=== PATIENT | male | born 1930 | race Hispanic/Latino ===

== ENCOUNTER 2016-10-07 13:00 | Inpatient (IN) | payer MEDICARE, BC ==
[2016-10-07] MEDS ORDERED: Albuterol-Ipratrop 3 mg / 0.5 (3 ml) UD IH STA (13:19)
--- NOTE | 2016-10-07 13:32 | ED PDOC ---
Arrival/HPI - General Chief Complaint: Shortness Of Breath Time Seen by Provider: 10/07/16 13:06 Historian: Patient, Family - History of Present Illness Narrative History of Present Illness (Text): 10/07/16 13:07 A 86 year old male, whose past medical history includes COPD, GERD, hypertension , Parkinson's disease, and atherectomy AAA, who presents to the emergency department complaining of shortness of breath. Patient notes for the past 2 weeks he has had a cough with URI like symptoms. Patient was seen by his PMD and was prescribed a Z-ezequiel and cough medication. Patient reports he has been using his home nebulizer more frequently. Patient daughter and patient states today when the patient was walking down the stair to go to his PMD's office for a check up he became more short of breath and was coughing a lot more. Patient' s PMD sent to the patient to the emergency department for further evaluation. Patient denies any chest pain, abdominal pain, nausea, vomiting, fever, headache or any other complaints at this time. PMD: Dr. Aguayo Time/Duration: > week (2 weeks) Symptom Onset: Gradual Symptom Course: Worsening Quality: Other Activities at Onset: Rest Modifying Factors (Text): no relief with z-ezequiel and cough medication Context: Home Associated Symptoms (Text): cough and URI like symptoms Past Medical History - Provider Review Nursing Documentation Reviewed: Yes - Past History Past History: No Previous - Infectious Disease Hx of Infectious Diseases: None - Tetanus Immunization Tetanus Immunization: Unknown - Past Medical History Past Medical History: No Previous - Cardiac Hx Cardiac Disorders: Yes Hx Hypertension: Yes Hx Pacemaker: No - Pulmonary Hx Respiratory Disorders: Yes Hx Bronchitis: Yes Hx Chronic Obstructive Pulmonary Disease (COPD): Yes Hx Emphysema: Yes - Neurological Hx Neurological Disorder: No Hx Paralysis: No - HEENT Hx HEENT Disorder: No - Renal Hx Renal Disorder: Yes Other/Comment: RENAL INSUFFICIENCY - Endocrine/Metabolic Hx Endocrine Disorders: No - Hematological/Oncological Hx Blood Transfusions: No Hx Blood Transfusion Reaction: No - Integumentary Hx Dermatological Disorder: No - Musculoskeletal/Rheumatological Hx Musculoskeletal Disorders: Yes - Gastrointestinal Hx Gastrointestinal Disorders: No - Genitourinary/Gynecological Hx Genitourinary Disorders: Yes Hx Prostate Problems: Yes - Psychiatric Hx Psychophysiologic Disorder: No Hx Depression: No Hx Emotional Abuse: No Hx Physical Abuse: No Hx Substance Use: No - Past Surgical History Past Surgical History: No Previous - Surgical History Hx Cardiac Catheterization: Yes Hx Coronary Stent: Yes Hx Orthopedic Surgery: Yes - Anesthesia Hx Anesthesia Reactions: No Hx Malignant Hyperthermia: No - Suicidal Assessment Feels Threatened In Home Enviroment: No Family/Social History - Physician Review Nursing Documentation Reviewed: Yes Family/Social History: No Known Family HX Smoking Status: Former Smoker Hx Alcohol Use: No Hx Substance Use: No Hx Substance Use Treatment: No Allergies/Home Meds Allergies/Adverse Reactions: Allergies No Known Allergies Allergy (Verified 10/07/16 13:17) Home Medications: Home Meds Medication Instructions Recorded Confirmed Albuterol 0.083% [Albuterol 0.083% 1 inh NEB Q6 12/05/15 10/07/16 Inhal Josie (2.5 mg/3 ml) UD] Celecoxib [Celecoxib] 200 mg PO DAILY 12/05/15 10/07/16 Ipratropium 0.02% [Atrovent] 1 inh INH Q6 12/05/15 10/07/16 Vit A/Vit C/Vit E/Zinc/Copper 2 tab PO DAILY 12/05/15 10/07/16 [Preservision Areds Tablet] Mirabegron [Myrbetriq] 50 mg PO DAILY 07/30/16 10/07/16 Montelukast [Singulair] 50 mg PO DAILY 07/30/16 10/07/16 Pramipexole Di-HCl [Pramipexole 0.125 mg PO HS 07/30/16 10/07/16 Dihydrochloride] Rivastigmine 9.5 mg/24 hr [Exelon 1 patch TD DAILY 07/30/16 10/07/16 9.5 mg Patch] Albuterol Sulfate [Proventil Hfa] 1 inh INH Q6 PRN 10/07/16 10/07/16 Fluticasone/Vilanterol [Breo 1 inh INH DAILY 10/07/16 10/07/16 Ellipta 200-25 Mcg INH] Review of Systems - Physician Review All systems were reviewed & negative as marked: Yes - Review of Systems Constitutional: absent: Fevers Respiratory: SOB, Cough Cardiovascular: absent: Chest Pain Gastrointestinal: absent: Abdominal Pain, Nausea, Vomiting Neurological: absent: Headache, Dizziness Physical Exam Vital Signs Reviewed: Yes Vital Signs Temp Pulse Resp BP Pulse Ox 10/07/16 15:32 96 H 16 132/82 96 10/07/16 13:28 98.4 F 87 18 149/79 96 10/07/16 13:20 17 100 Temperature: Afebrile Blood Pressure: Normal Pulse: Regular Respiratory Rate: Tachypneic Appearance: Positive for: Well-Appearing, Non-Toxic, Comfortable Pain Distress: None Mental Status: Positive for: Alert and Oriented X 3 - Systems Exam Head: Present: Atraumatic, Normocephalic Pupils: Present: PERRL Extroacular Muscles: Present: EOMI Conjunctiva: Present: Normal Mouth: Present: Moist Mucous Membranes Neck: Present: Normal Range of Motion Respiratory/Chest: Present: Good Air Exchange, Wheezes (bilaterally), Tachypneic. No: Respiratory Distress, Accessory Muscle Use, Rales, Retracting, Rhonchi Cardiovascular: Present: Regular Rate and Rhythm, Normal S1, S2. No: Murmurs Abdomen: Present: Normal Bowel Sounds. No: Tenderness, Distention, Peritoneal Signs Back: Present: Normal Inspection Upper Extremity: Present: Normal Inspection. No: Cyanosis, Edema Lower Extremity: Present: Normal Inspection. No: Edema, CALF TENDERNESS Neurological: Present: GCS=15, CN II-XII Intact, Speech Normal Skin: Present: Warm, Dry, Normal Color. No: Rashes Psychiatric: Present: Alert, Oriented x 3, Normal Insight, Normal Concentration Medical Decision Making ED Course and Treatment: 10/07/16 13:07 Impression: A 86 year old male with shortness of breath and cough. Differential Diagnosis included but are not limited to: URI vs. Pneumonia vs. ACS vs. COPD exacerbation vs. bronchitis Plan: -- EKG -- Chest X-ray -- Labs -- Duoneb -- Reassess and disposition Prior Visits: Notes and results from previous visits were reviewed. The patient last presented to the emergency department on 05/18/16 for evaluation after a mechanical fall. Progress Notes: EKG: Ordered, reviewed, and independently interpreted the EKG. Rate : 95 BPM Rhythm : NSR Interpretation : Incomplete right bundle branch block Comparison : No change from previous EKG on 07/20/14 for comparison. Chest X-ray: As ready by me no acute findings. Due to persistent shortness of breath, history of COPD and failed outpatient treatment, patient will need to be observed 10/07/16 15:[address] Eugenio Aguayo, who is aware and agrees with the plan to admit the patient for COPD exacerbation and bronchitis. He states to to start patient on ceftriaxone and azithromycin. I have discussed the results and plan with the patient, who expresses understanding. Patient given the opportunity to ask question, all questions were answered and there is agreement with the plan to be admitted to the hospital. 10/07/16 16:27 Chest X-ray: Creator : Darius Willard MD COMPARISON: 07/23/2014 FINDINGS: LUNGS: No active pulmonary disease. PLEURA: No significant pleural effusion identified. No pneumothorax apparent. CARDIOVASCULAR: There is a small hiatal hernia seen. OSSEOUS STRUCTURES: Left glenohumeral osteoarthritis with left rotator cuff insufficiency and mild superior subluxation of the humeral head. VISUALIZED UPPER ABDOMEN: Normal. OTHER FINDINGS: None. IMPRESSION: Small hiatal hernia. No infiltrate. - Lab Interpretations Lab Results: 10/07/16 13:56 10/07/16 13:56 Lab Results 10/07/16 13:56: WBC 6.7, RBC 4.05, Hgb 12.4 L, Hct 37.7 L, MCV 93.1, MCH 30.6, MCHC 32.9, RDW 13.7, Plt Count 176, MPV 9.0, Gran % 60.1, Lymph % (Auto) 20.4 L , [place] % (Auto) 9.6 H, Eos % (Auto) 9.3 H, Baso % (Auto) 0.6, Gran # 4.03, Lymph # 1.4, [place] # 0.6, Eos # 0.6, Baso # 0.04, Sodium 139, Potassium 4.9, Chloride 104, Carbon Dioxide 24, Anion Gap 16, BUN 27 H, Creatinine 1.3, Est GFR ( Amer) > 60, Est GFR (Non-Af Amer) 52, Random Glucose 97, Calcium 8.8, Total Creatine Kinase 138, Troponin I < 0.01 D, NT-Pro-B Natriuret Pep 484 H I have reviewed the lab results: Yes - RAD Interpretation Radiology Orders: 10/07/16 13:19 CHEST TWO VIEWS (PA/LAT) [RAD] Stat - Medication Orders Current Medication Orders: Azithromycin (Zithromax 500mg In Ns) 250 mls @ 167 mls/hr IVPB STAT STA PRN Reason: Protocol Stop: 10/07/16 17:13 Discontinued Medications Albuterol/Ipratropium (Duoneb 3 Mg/0.5 Mg (3 Ml) Ud) 3 ml IH STAT STA Stop: 10/07/16 13:20 Last Admin: 10/07/16 13:38 Dose: 3 ML Ceftriaxone Sodium (Rocephin 1 Gram Ivpb) 100 mls @ 200 mls/hr IVPB STAT STA PRN Reason: Protocol Stop: 10/07/16 16:11 Last Admin: 10/07/16 16:27 Dose: 200 MLS/HR eMAR Start Stop Document 10/07/16 16:27 SF (Rec: 10/07/16 16:27 SF [id number] Intravenous Solution Start Date 10/07/16 Start Time 16:27 End Date 10/07/16 End time 16:57 Total Infusion Time 30 - Scribe Statement The provider has reviewed the documentation as recorded by the Scribe Man Levi Provider Scribe Attestation: All medical record entries made by the Scribe were at my direction and personally dictated by me. I have reviewed the chart and agree that the record accurately reflects my personal performance of the history, physical exam, medical decision making, and the department course for this patient. I have also personally directed, reviewed, and agree with the discharge instructions and disposition. Disposition/Present on Arrival - Present on Arrival Any Indicators Present on Arrival: No History of DVT/PE: No History of Uncontrolled Diabetes: No Urinary Catheter: No History of Decub. Ulcer: No History Surgical Site Infection Following: None - Disposition Have Diagnosis and Disposition been Completed?: Yes Diagnosis: COPD exacerbation, Bronchitis Disposition: HOSPITALIZED Disposition Time: 15:41 Patient Plan: Observation Patient Problems: Current Active Problems Problem Status Diagnosed Bronchitis Acute COPD exacerbation Acute Renal insufficiency Acute Condition: FAIR
[2016-10-07 13:57] LABS: ADD MANUAL DIFF? NO
[2016-10-07 13:59] LABS: BASO # 0.04 K/mm3 (0.0-2.0); BASO % 0.6 % (0.0-3.0); EOS # 0.6 (0.0-0.7); EOS % 9.3 % (1.5-5.0); GRAN # 4.03 (1.4-6.5); GRAN % 60.1 % (50.0-68.0); HEMATOCRIT 37.7 % (42.0-52.0); LYMPH # 1.4 (1.2-3.4); LYMPH % 20.4 % (22.0-35.0); MEAN CELL VOLUME 93.1 fL (80.0-105.0); MEAN CORPUSCULAR HEMOGLOBIN 30.6 pg (25.0-35.0); MEAN CORPUSCULAR HGB CONC 32.9 g/dl (31.0-37.0); MONO # 0.6 (0.1-0.6); MONO % 9.6 % (1.0-6.0); PLATELET COUNT 176 10^3/uL (120.0-450.0); RED CELL DISTRIBUTION WIDTH 13.7 % (11.5-14.5); WHITE BLOOD COUNT 6.7 10^3/ul (4.5-11.0)
[2016-10-07 14:09] LABS: BLOOD UREA NITROGEN 27 mg/dL (7-21); CALCIUM 8.8 mg/dL (8.4-10.5); CARBON DIOXIDE 24 mmol/L (21-33); CHLORIDE 104 mmol/L (98-107); GFR AFRICAN-AMERICAN > 60; GLUCOSE,RANDOM 97 mg/dL (70-110); POTASSIUM 4.9 mmol/L (3.6-5.0); SODIUM 139 mmol/L (132-148)
[2016-10-07 14:21] LABS: TROPONIN I < 0.01 ng/mL
[2016-10-07] MEDS ORDERED: cefTRIAXone 1 gm 100 ML IVPB STA (15:42)
[2016-10-07] MEDS ORDERED: Azithromycin 500MG/NS 250ml 250 ML IVPB STA (15:44)
--- NOTE | 2016-10-07 16:28 | RAD ---
HISTORY: shortness of breath COMPARISON: 07/23/2014 TECHNIQUE: Chest PA and lateral FINDINGS: LUNGS: No active pulmonary disease. PLEURA: No significant pleural effusion identified. No pneumothorax apparent. CARDIOVASCULAR: There is a small hiatal hernia seen. OSSEOUS STRUCTURES: Left glenohumeral osteoarthritis with left rotator cuff insufficiency and mild superior subluxation of the humeral head. VISUALIZED UPPER ABDOMEN: Normal. OTHER FINDINGS: None. IMPRESSION: Small hiatal hernia. No infiltrate.
[2016-10-07] MEDS ORDERED: Albuterol-Ipratrop 3 mg / 0.5 (3 ml) UD IH PRN (17:47)
--- NOTE | 2016-10-07 18:23 | CARD ---
APPROVED REPORT EKG Measurement Heart [id number] TN 124P26 [id number] <Conclusion> Normal sinus rhythm Incomplete right bundle branch block Borderline ECG
[2016-10-07] MEDS: Albuterol-Ipratrop 3 mg / 0.5 (3 ml) UD IH SCH ×2 (21:20→23:50)
[2016-10-07] MEDS ORDERED: Pneumococcal 23-Valent Vaccine IM ONE (23:12)
[2016-10-07] MEDS ORDERED: Influenza Vaccine 45 MCG/0.5 ml IM ONE (23:12)
--- NOTE | 2016-10-07 23:57 | CP.PCM.PN ---
Subjective - Date & Time of Evaluation Date of Evaluation: 10/07/16 Time of Evaluation: 21:00 - Subjective Subjective: Patient evaluated earlier after code star called. Patient got up from the bed and as per him to empty his urinal, felt unsteady, held on to the door and slid down, this was confirmed from the patient and his roomate. He was brought back to the bed, patient was able to walk while going back to bed, denied any pain. Upon clinical exam no swelling or bruise noticed to head, neck, chest, hips, legs. Chest exam revealed b/l scattered wheezes. Patient also clinically seemed bit anxious with passage of time during exam started to calm down. BP was elevated a the time with improved spontaneously. PMD was notified about the events. Patient was informed about fall risk/prevention, given call escamilla, and is in front of the nursing station. Objective - Vital Signs/Intake and Output Vital Signs (last 24 hours): Temp Pulse Resp BP Pulse Ox 98.4 F 94 H 16 143/68 94 L 10/07/16 23:02 10/07/16 23:02 10/07/16 23:02 10/07/16 23:02 10/07/16 18:29 Intake and Output: 10/07/16 10/08/16 18:59 06:59 Intake Total 360 Balance 360 - Medications Medications: Current Medications Albuterol/Ipratropium (Duoneb 3 Mg/0.5 Mg (3 Ml) Ud) 3 ml IH [id number] Last Admin: 10/07/16 23:50 Dose: 3 ml
[2016-10-08] MEDS: Albuterol-Ipratrop 3 mg / 0.5 (3 ml) UD IH SCH ×6 (03:30→23:45)
[2016-10-08] MEDS: Mirabegron [Myrbetriq] 50 MG (HOME MED) PO SCH (10:27)
--- NOTE | 2016-10-08 14:43 | HP ---
HISTORY OF PRESENT ILLNESS: The patient is an 86-year-old male with a history of COPD secondary to t obacco use, who presents to the Emergency Department with increasing shortness of breath and producti ve cough over the past week. The patient was treated as an outpatient with a Z-Clayton without relief of symptoms. He has had increasing wheezing. No hemoptysis, no nausea, no vomiting, no diarrhea, no c hest pain. 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 PAST SURGICAL HISTORY: Includes status post abdominal aortic stent placement for abdominal aortic an eurysm. CURRENT MEDICATIONS: Include Exelon patch 9.5 mg for 24 hours daily, Singulair 10 mg daily, Myrbetri q 50 mg daily, Atrovent inhaler as well as albuterol inhalers, Celebrex 200 mg daily and Breo Ellipta 200/25 mcg inhalation daily. ALLERGIES: The patient has no known drug allergies. SOCIAL HISTORY: The patient smokes approximately 1/2 pack per day and has a greater than 50-pack-yea r history of tobacco use. No history of alcohol use. He lives with his daughter. He needs assistan ce with IADLs and is independent with ADLs. PHYSICAL EXAMINATION: GENERAL: The patient is a slightly cachectic, elderly male, in no acute distress. VITAL SIGNS: Blood pressure 161/99, temperature 98.6, respiratory rate 22, pulse 89. HEENT: Head is normocephalic, atraumatic. Pupils equal, round and reactive to light. Extraocular m ovements intact. NECK: Supple with no thyromegaly, no carotid bruit, no adenopathy. LUNGS: Show scattered crepitations bilaterally and expiratory wheezes. HEART: Regular rate and rhythm. ABDOMEN: Soft, nontender, bowel sounds are normoactive. EXTREMITIES: Without cyanosis, clubbing, or edema. NEUROLOGIC: The patient is awake, slightly confused without focal, sensory or motor deficits. SKIN: Warm and dry. LABORATORY DATA: WBCs 6.7, hemoglobin 12.4, hematocrit 37.7. Sodium 139, potassium 4.9, chloride 10 4, CO2 24, BUN 27, creatinine 1.3. BNP is slightly elevated at 484. Troponin is less than 0.01. CP K is 138. Chest x-ray shows no active disease. IMPRESSION: 1. Exacerbation of chronic obstructive pulmonary disease with bronchitis. 2. Hypertension, hypertensive cardiovascular disease, possible early congestive heart failure. 3. Degenerative joint disease. 4. Mild to moderate Alzheimer disease. 5. Status post stent graft placement, abdominal aortic aneurysm. PLAN: The patient is admitted to medical surgical floor. We will start empiric IV antibiotics with Rocephin 1 gram q. 24 hours as well as Zithromax 500 mg IV q. 24 hours. We will give DuoNeb q. 4 foster rs while awake. Monitor renal function. Physical therapy evaluation and treatment. Social work for discharge planning. Eugenio Aguayo JD, MD cc: [phone] TT: 10/08/2016 14:43:06 en
[2016-10-08] MEDS: cefTRIAXone 1 gm 100 ML IVPB SCH (17:45)
[2016-10-08] MEDS: Azithromycin 500MG/NS 250ml 250 ML IVPB SCH (17:50)
[2016-10-08] MEDS: Arformoterol 15 mcg/2 ml Inh Sol IH SCH (20:10)
[2016-10-08] MEDS: Budesonide 0.5 mg/2 ml Inhal Susp UD IH SCH (20:10)
[2016-10-09] MEDS: Albuterol-Ipratrop 3 mg / 0.5 (3 ml) UD IH SCH ×4 (04:33→21:36)
[2016-10-09] MEDS: cefTRIAXone 1 gm 100 ML IVPB SCH (09:16)
[2016-10-09] MEDS: Azithromycin 500MG/NS 250ml 250 ML IVPB SCH (09:16)
[2016-10-09] MEDS: Pantoprazole 20 mg EC Tab PO SCH (09:18)
[2016-10-09] MEDS: Mirabegron [Myrbetriq] 50 MG (HOME MED) PO SCH (09:18)
[2016-10-09] MEDS: Budesonide 0.5 mg/2 ml Inhal Susp UD IH SCH ×2 (09:23→21:36)
[2016-10-09] MEDS: Arformoterol 15 mcg/2 ml Inh Sol IH SCH ×2 (09:23→21:36)
--- NOTE | 2016-10-09 12:40 | PN ---
DATE: 10/09/2016 SUBJECTIVE: The patient is lying in bed in no acute distress. There is no chest pain, no shortness of breath. There is an occasional cough. OBJECTIVE: VITAL SIGNS: Blood pressure 166/94, temperature 98.9, pulse 92, respiratory rate 20. LUNGS: Show an occasional expiratory wheeze and a few scattered crepitations. HEART: Regular rate and rhythm. ABDOMEN: Soft, nontender. Bowel sounds are normoactive. EXTREMITIES: Without cyanosis, clubbing, or edema. NEUROLOGIC: The patient is awake and alert without focal, sensory or motor deficits. SKIN: Warm and dry. IMPRESSION: 1. Exacerbation of chronic obstructive pulmonary disease with bronchitis. 2. Hypertension, hypertensive cardiovascular disease, mild congestive heart failure. 3. Degenerative joint disease. 4. Mild Alzheimer's disease. PLAN: Continue empiric IV antibiotics with Rocephin and Zithromax. Continue DuoNeb. Out of bed as tolerated. Social work for discharge planning. Eugenio Aguayo JD, MD cc: [phone] TT: 10/09/2016 12:39:47 Confirmation # [id number] Dictation # [id number] kristine
--- NOTE | 2016-10-09 18:00 | CP.PCM.PN ---
Subjective - Date & Time of Evaluation Date of Evaluation: 10/09/16 Time of Evaluation: 17:10 - Subjective Subjective: Patient seen STAT at the request of his RN for complaint of intermittent left sided chest pain. According to patient he has been getting this chest pain on and off. He describes it as a sharp pain that is located in Left upper anterior chest wall. It does not radiate to the neck, back or arms. Patient states the pain comes and goes, even at rest. When it does come it lasts five or ten minutes and goes away by itself. On a scale of 1-10 it is a 10 when it occurs. It is not associated with any other symptoms like nausea, vomiting, palpitation or sweating. At present he denies having this pain. It last occurred at about 4: 30pm today. This pain has been coming and going for a month or two according to the patient. He states he has not made the doctor or anyone else aware of this pain until now. Currently the patient is being treated for Exacerbation of COPD with Bronchitis. BP 132/83 HR 83 O2 sat 96% on 2L NC Temp 98.8 PMH: COPD, HTN, DJD, Mild to Moderate Alzheimer's disease Objective - Vital Signs/Intake and Output Vital Signs (last 24 hours): Temp Pulse Resp BP Pulse Ox 98.9 F 92 H 22 166/94 H 96 10/09/16 07:30 10/09/16 07:30 10/09/16 07:30 10/09/16 07:30 10/09/16 07:30 Intake and Output: 10/09/16 10/09/16 06:59 18:59 Intake Total 660 420 Output Total 250 350 Balance 410 70 - Medications Medications: Current Medications Albuterol/Ipratropium (Duoneb 3 Mg/0.5 Mg (3 Ml) Ud) 3 ml IH [id number] [facility] Last Admin: 10/09/16 12:40 Dose: 3 ml Arformoterol Tartrate (Brovana) 15 mcg IH [id number] [facility] Last Admin: 10/09/16 09:23 Dose: 15 mcg Budesonide (Pulmicort Respules) 0.5 mg IH [id number] [facility] Last Admin: 10/09/16 09:23 Dose: 0.5 mg Ceftriaxone Sodium (Rocephin 1 Gram Ivpb) 100 mls @ 100 mls/hr IVPB DAILY [facility] PRN Reason: Protocol Last Admin: 10/09/16 09:16 Dose: 100 mls/hr Azithromycin (Zithromax 500mg In Ns) 250 mls @ 167 mls/hr IVPB DAILY MARGOT PRN Reason: Protocol Last Admin: 10/09/16 09:16 Dose: 167 mls/hr Montelukast Sodium (Singulair) 10 mg PO HS [facility] Last Admin: 10/08/16 21:44 Dose: 10 mg Mirabegron [ Myrbetriq] 50 Mg ( Home Med) 50 mg PO DAILY [facility] Pantoprazole Sodium (Protonix Ec Tab) 20 mg PO 0730 [facility] Last Admin: 10/09/16 09:18 Dose: 20 mg Pramipexole Dihydrochloride (Mirapex) 0.125 mg PO HS [facility] Last Admin: 10/08/16 21:44 Dose: 0.125 mg Rivastigmine (Exelon 9.5 Mg/24 Hr Patch) 1 patch TD DAILY [facility] Last Admin: 10/09/16 09:18 Dose: 1 patch - Constitutional Appears: No Acute Distress, Confused (at times.) - Head Exam Head Exam: ATRAUMATIC, NORMAL INSPECTION, NORMOCEPHALIC - Eye Exam Eye Exam: PERRL - ENT Exam ENT Exam: Mucous Membranes Moist - Neck Exam Neck Exam: Tenderness - Respiratory Exam Respiratory Exam: Chest Wall Tenderness (Tenderness noted on palpation of the L upper costochondral junction.), Decreased Breath Sounds, Wheezes, NORMAL BREATHING PATTERN. absent: Accessory Muscle Use - Cardiovascular Exam Cardiovascular Exam: REGULAR RHYTHM (scattered wy) - GI/Abdominal Exam GI & Abdominal Exam: Soft, Normal Bowel Sounds - Extremities Exam Extremities Exam: Normal Inspection. absent: Calf Tenderness, Pedal Edema - Neurological Exam Neurological Exam: Alert, Awake, Oriented x3 Additional comments: intermittently confused - Psychiatric Exam Psychiatric exam: Normal Affect - Skin Skin Exam: Dry, Normal Color, Warm Assessment and Plan - Assessment and Plan (Free Text) Assessment: Chest pain probably secondary to costochondritis. Plan: EKG was done stat .It showed NSR,incomplete RBBB(findings same as before) Suggest tylenol 650 mg po q 6 h prn for this pain. Discussed with Dr Aguayo,he wanted us to order Troponin 1 now, then in AM.
[2016-10-10] MEDS: Albuterol-Ipratrop 3 mg / 0.5 (3 ml) UD IH SCH ×6 (00:39→20:04)
[2016-10-10] MEDS: Budesonide 0.5 mg/2 ml Inhal Susp UD IH SCH ×2 (07:45→20:02)
[2016-10-10] MEDS: Arformoterol 15 mcg/2 ml Inh Sol IH SCH ×2 (07:45→20:02)
--- NOTE | 2016-10-10 08:46 | CARD ---
APPROVED REPORT EKG Measurement Heart [id number] HI 126P22 [id number] <Conclusion> Normal sinus rhythm Incomplete right bundle branch block Borderline ECG
[2016-10-10] MEDS: Pantoprazole 20 mg EC Tab PO SCH (09:31)
[2016-10-10] MEDS: Mirabegron [Myrbetriq] 50 MG (HOME MED) PO SCH (09:31)
[2016-10-10] MEDS: Azithromycin 500MG/NS 250ml 250 ML IVPB SCH (09:32)
[2016-10-10] MEDS: cefTRIAXone 1 gm 100 ML IVPB SCH (09:32)
[2016-10-10] MEDS: MethylPREDNISolone 40 mg Vial IVP SCH ×2 (13:19→22:29)
--- NOTE | 2016-10-10 14:43 | PN ---
DATE: 10/10/2016 SUBJECTIVE: The patient is out of bed in a chair, in no acute distress. He denies chest pain or shayy rtness of breath at the present time. He reports occasional cough, which is nonproductive. OBJECTIVE: VITAL SIGNS: Blood pressure 138/78, temperature 98.3, pulse 93, respiratory rate 20. LUNGS: Show bibasilar crackles and a few scattered crepitations bilaterally. HEART: Regular rate and rhythm. ABDOMEN: Soft, nontender, bowel sounds are normoactive. EXTREMITIES: Without cyanosis, clubbing, or edema. NEUROLOGIC: The patient is awake and alert without focal, sensory or motor deficits. SKIN: Warm and dry. IMPRESSION: 1. Exacerbation of chronic obstructive pulmonary disease with bronchitis. 2. Hypertension, hypertensive cardiovascular disease and mild congestive heart failure. 3. Degenerative joint disease. 4. Mild Alzheimer disease. PLAN: Continue empiric IV antibiotics with Rocephin and Zithromax. Continue DuoNeb nebulizer treatm ents. Will give 1 dose of Lasix 20 mg daily. Check labs, BNP in a.m. Social work for discharge [facility]. Eugenio Aguayo JD, MD cc: [phone] TT: 10/10/2016 14:42:31 Confirmation # [id number] Dictation # [id number] en
[2016-10-11] MEDS: Albuterol-Ipratrop 3 mg / 0.5 (3 ml) UD IH SCH ×6 (00:45→20:45)
[2016-10-11 07:20] LABS: ADD MANUAL DIFF? NO
[2016-10-11 07:22] LABS: GRAN # 7.08 (1.4-6.5); GRAN % 88.7 % (50.0-68.0); LYMPH # 0.7 (1.2-3.4); LYMPH % 8.5 % (22.0-35.0); MEAN CELL VOLUME 91.1 fL (80.0-105.0); MEAN CORPUSCULAR HEMOGLOBIN 30.7 pg (25.0-35.0); MEAN CORPUSCULAR HGB CONC 33.7 g/dl (31.0-37.0); MEAN PLATELET VOLUME 9.4 fl (7.0-11.0); MONO # 0.2 (0.1-0.6); MONO % 2.8 % (1.0-6.0); PLATELET COUNT 199 10^3/uL (120.0-450.0); RED CELL DISTRIBUTION WIDTH 13.4 % (11.5-14.5)
[2016-10-11 08:05] LABS: ALB/GLOB RATIO 1.1 (1.1-1.8); ALKALINE PHOSPHATASE 153 U/L (38-133); ALT/SGPT 18 U/L (7-56); AST/SGOT 35 U/L (15-59); BILIRUBIN,TOTAL 0.6 mg/dL (0.2-1.3); BLOOD UREA NITROGEN 34 mg/dL (7-21); CALCIUM 9.3 mg/dL (8.4-10.5); CARBON DIOXIDE 25 mmol/L (21-33); CHLORIDE 105 mmol/L (98-107); GFR AFRICAN-AMERICAN > 60; GLUCOSE,RANDOM 150 mg/dL (70-110); POTASSIUM 4.6 mmol/L (3.6-5.0); SODIUM 143 mmol/L (132-148); TOTAL PROTEIN 7.6 g/dL (5.8-8.3)
[2016-10-11] MEDS: Pantoprazole 20 mg EC Tab PO SCH (08:30)
[2016-10-11] MEDS: Arformoterol 15 mcg/2 ml Inh Sol IH SCH ×2 (08:48→20:45)
[2016-10-11] MEDS: Budesonide 0.5 mg/2 ml Inhal Susp UD IH SCH ×2 (08:48→20:45)
--- NOTE | 2016-10-11 08:49 | PQF CHF ---
This form is a permanent part of the medical record Dr. Aguayo, Patient admitted with COPD exacerbation and bronchitis. BNP slightly elevated but rising and you treated with Lasix. You noted mild CHF in progress notes. Would you be able to be more specific about type and severity of CHF present? Clarification of your documentation is requested to better reflect the severity of illness and intensity of treatment of your patient. Indicators present [] Diagnosis of CHF and/or history of CHF [] BNP > 200 [] Imaging Finding of Pulmonary Edema /Pleural Effusions [] Fluid/Volume Overload [] Pitting edema [] Ejection Fraction < 40% (Indicative of Systolic Heart Failure) [] Ejection Fraction > 40% (Indicative of Diastolic Heart Failure) [x] Dyspnea / Orthopenea / Paroxysmal Nocturnal Dyspnea [] Other: Location in the medical record that reflects the above clinical findings: [] Treatment Provided: [] PHYSICIAN'S RESPONSE Based on your medical judgment of the clinical indicators outlined above, are you treating this patient for a known or suspected: [] Acute CHF [] Systolic [] Diastolic [] Combined [] Chronic CHF [] Systolic [] Diastolic [] Combined [x] Acute on Chronic CHF []Systolic [] Diastolic [x] Combined [] CHF due hypertension [] Acute systolic []Chronic systolic [] Acute/ chronic systolic [] Other, please indicate: [] [] If Unable to Determine, please check the box, sign and date. Present On Admission (POA) Indicator: [] Present at the time of admission [] Not present at the time of admission [x] Clinically Undetermined In responding to this query, please exercise your independent professional judgment. The fact that a question is asked does not imply that any particular answer is desired or expected. Thank you for your clarification on this documentation. 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
[2016-10-11] MEDS: Mirabegron [Myrbetriq] 50 MG (HOME MED) PO SCH (09:39)
[2016-10-11] MEDS: MethylPREDNISolone 40 mg Vial IVP SCH ×2 (09:39→21:17)
[2016-10-11] MEDS: Azithromycin 500MG/NS 250ml 250 ML IVPB SCH (09:40)
[2016-10-11] MEDS: cefTRIAXone 1 gm 100 ML IVPB SCH (09:40)
--- NOTE | 2016-10-11 11:12 | PN ---
DATE: 10/11/2016 SUBJECTIVE: The patient is lying in bed in no acute distress. He reports some cough, but no chest p ain or shortness of breath. OBJECTIVE: VITAL SIGNS: Blood pressure 137/74, temperature 97.7, pulse 89, respiratory rate 18. LUNGS: Show bibasilar rales and scattered crepitations with occasional expiratory wheeze. HEART: Regular rate and rhythm. ABDOMEN: Soft, nontender. Bowel sounds are normoactive. EXTREMITIES: Without cyanosis, clubbing, or edema. NEUROLOGIC: The patient is awake and alert without focal, sensory or motor deficits. SKIN: Warm and dry. LABORATORY DATA: WBC is 8.0, hemoglobin 12.8, hematocrit 38.0. Sodium 143, potassium 4.6, chloride 105, CO2 of 25, BUN 34, creatinine 1.3, glucose 150. BNP is elevated at 1030. IMPRESSION: 1. Exacerbation of chronic obstructive pulmonary disease with bronchitis. 2. Hypertension, hypertensive cardiovascular disease, and mild congestive heart failure. 3. Degenerative joint disease. 4. Mild Alzheimer's disease. PLAN: Continue empiric IV antibiotics with Rocephin and Zithromax. We will give an additional dose of IV Lasix 40 mg today. Continue to monitor labs and BNP. We will obtain cardiology consult from Dr. Renee and pulmonary consult from Dr. Cavazos. Physical therapy and social work for discharge [facility]. Eugenio Aguayo JD, MD cc: [id number] TT: 10/11/2016 11:11:35 Confirmation # [id number] Dictation # [id number] jn
--- NOTE | 2016-10-11 21:48 | CON ---
DATE: 10/11/2016 HISTORY OF PRESENT ILLNESS: The patient is an 86-year-old male well known to me from his previous ca rdiac condition who presents with shortness of breath. PAST MEDICAL HISTORY: Includes COPD, as well as CAD with a stent placed years ago. His last cardiac evaluation revealed an echocardiogram which revealed an ejection fraction of 71%. In addition, the stress test was done which showed no change in his minor defects on his previous str ess test. He denies chest pain. Denies edema in the lower extremities. He states his breathing is much improv ed. SOCIAL HISTORY: The patient is still an active smoker, just discontinued prior to coming to the [facility]. REVIEW OF SYSTEMS: A 14-point review of systems was reviewed in detail. His symptoms are predominan tly dyspnea, which is now improved. PHYSICAL EXAMINATION: VITAL SIGNS: Blood pressure is 108/56, heart rate is in the 90s. NECK: Negative JVD. LUNGS: Clear to auscultation, no wheezing, no rales. HEART: Revealed S1, S2 with a soft systolic ejection murmur. EXTREMITIES: Without edema. EKG shows normal sinus rhythm with an incomplete right bundle branch block. LABORATORIES: Hemoglobin is 12.8. Chemistries: The proBNP is 1030 with a troponin is negative x 3. IMPRESSION: 1. Dyspnea. 2. Exacerbation of chronic obstructive pulmonary disease. 3. No evidence of congestive heart failure at this time. 4. Mild prerenal azotemia. 5. Hypertension. Given these findings, the patient's cardiac status is stable. I agree with low doses of Lasix given his elevated proBNP. However, the patient exhibits no clinical evidence for acute CHF. Darius Wheat MD cc: [id number] TT: 10/11/2016 21:47:28 Confirmation # [id number] Dictation # [id number] kristine
--- NOTE | 2016-10-11 22:01 | CON ---
DATE: 10/11/2016 REFERRING PHYSICIAN: Dr. Aguayo. REASON FOR CONSULT: Cough and shortness of breath. HISTORY OF PRESENT ILLNESS: This is an 86-year-old gentleman with past medical history known chronic obstructive lung disease, hypertension, degenerative joint disease, Alzheimer's type dementia, came into Emergency Room with cough and shortness of breath. Outpatient, he was treated with Z-Clayton which failed. Since admission has started on antibiotics and bronchodilators, still has cough and shortnes s of breath. No hemoptysis. No vomiting, no hematuria, no diarrhea reported. PAST MEDICAL HISTORY: Chronic obstructive lung disease, hypertension, Alzheimer type dementia, degen erative joint disease. ALLERGIES: None known. SOCIAL HISTORY: He is an ex-smoker. Denies any alcohol use. MEDICATIONS: He is Brovana 15 mcg inhaled twice a day, Cozaar 25 mg daily, DuoNeb q 4 hours, Exelon patch 9.5 mg, Lasix 40 mg daily. Also getting home med, which is ____ 50 mg daily, Mirapex 0.125 mg at bedtime, Protonix 20 mg daily, budesonide inhaled twice a day, Rocephin 1 gram daily, Singulair 10 mg daily, Solu-Medrol 40 mg q. 12 hours, Tylenol p.r.n., Zithromax 500 mg daily. REVIEW OF SYSTEMS: No headache, no rhinitis. Has cough, shortness of breath. No hemoptysis, no hem atemesis, no hematuria, no diarrhea, no leg pain or leg swelling reported. PHYSICAL EXAMINATION: GENERAL: Lying in the bed, in no acute distress, does have a cough. VITAL SIGNS: Temperature is 98, heart rate 92, respiratory rate is 20, blood pressure 108/____ pulse ox 96% on room air. HEENT: Moist mucous membranes. Crowded airway. Mallampati score is 4. NECK: Supple. No JVD. LUNGS: Scattered rhonchi. HEART: S1 and S2. ABDOMEN: Soft, nontender. No organomegaly. EXTREMITIES: There is no edema. NEUROLOGIC: Awake, alert, and follows simple commands. LABORATORY DATA: Shows hemoglobin 12.8, hematocrit 38.0, WBC 8.0, platelet is 199. Sodium 143, pota ssium 4.6, chloride 105, bicarbonate 25, BUN 34, creatinine 1.3, glucose 150, calcium is 9.3, AST 35, ALT 18, alkaline phosphatase is ____. ProBNP 1030. Albumin is 3.9. MICROBIOLOGY: Blood culture has been negative. Chest x-ray done on admission and that was on 017, it shows small hernia. There is no infiltrate or effusion noted. IMPRESSION AND PLAN: Exacerbation of chronic obstructive lung disease, hypertension, Alzheimer type dementia, degenerative joint disease, rule out oropharyngeal dysphagia. I agree with Dr. Aguayo with the present management. Continue antibiotics. Continue IV and inhaled bronchodilator. Gastric prop hylaxis. Deep venous thrombosis prophylaxis. We will get a procalcitonin and BNP in the morning. A lso, get a dysphagia evaluation. Case discussed with nurse practitioner on the floor. Thank you and will follow with you. Karishma Cavazos MD cc: [id number] TT: 10/11/2016 22:00:50 Confirmation # [id number] Dictation # [id number] jn
[2016-10-12] MEDS: Albuterol-Ipratrop 3 mg / 0.5 (3 ml) UD IH SCH ×7 (00:25→23:16)
[2016-10-12] MEDS: Budesonide 0.5 mg/2 ml Inhal Susp UD IH SCH ×2 (07:50→20:10)
[2016-10-12] MEDS: Arformoterol 15 mcg/2 ml Inh Sol IH SCH ×2 (07:50→20:10)
[2016-10-12 08:15] LABS: HEMATOCRIT 36.5 % (42.0-52.0); MEAN CELL VOLUME 91.7 fL (80.0-105.0); MEAN CORPUSCULAR HEMOGLOBIN 30.4 pg (25.0-35.0); MEAN CORPUSCULAR HGB CONC 33.2 g/dl (31.0-37.0); MEAN PLATELET VOLUME 9.1 fl (7.0-11.0); RED CELL DISTRIBUTION WIDTH 13.6 % (11.5-14.5); WHITE BLOOD COUNT 11.4 10^3/ul (4.5-11.0)
[2016-10-12 08:29] LABS: ALB/GLOB RATIO 1.1 (1.1-1.8); ALKALINE PHOSPHATASE 126 U/L (38-133); ALT/SGPT 32 U/L (7-56); AST/SGOT 29 U/L (15-59); BILIRUBIN,TOTAL 0.5 mg/dL (0.2-1.3); BLOOD UREA NITROGEN 47 mg/dL (7-21); CALCIUM 8.8 mg/dL (8.4-10.5); CARBON DIOXIDE 26 mmol/L (21-33); CHLORIDE 103 mmol/L (98-107); GFR AFRICAN-AMERICAN > 60; GLUCOSE,RANDOM 126 mg/dL (70-110); POTASSIUM 4.4 mmol/L (3.6-5.0); SODIUM 139 mmol/L (132-148); TOTAL PROTEIN 7.2 g/dL (5.8-8.3)
[2016-10-12] MEDS: Pantoprazole 20 mg EC Tab PO SCH (10:44)
[2016-10-12] MEDS: cefTRIAXone 1 gm 100 ML IVPB SCH (10:45)
[2016-10-12] MEDS: Azithromycin 500MG/NS 250ml 250 ML IVPB SCH (10:45)
[2016-10-12] MEDS: MethylPREDNISolone 40 mg Vial IVP SCH ×2 (10:46→21:17)
[2016-10-12] MEDS: Mirabegron [Myrbetriq] 50 MG (HOME MED) PO SCH (10:52)
--- NOTE | 2016-10-12 13:51 | PN ---
DATE: 10/12/2016 The patient is in a chair, comfortable without shortness of breath. Blood pressure 127/74, the heart rate is in the 80s. NECK: Negative JVD. LUNGS: No rales noted. HEART: Reveals S1, S2. EXTREMITIES: Without edema. The hemoglobin is 12.1. Troponins are negative x 3. Chemistries: BUN and creatinine is 47 and 1.3. IMPRESSION: 1. Exacerbation of chronic obstructive pulmonary disease. 2. No evidence for congestive heart failure. 3. Mild prerenal azotemia. 4. Dyspnea. Given these findings, will change his Lasix to p.o. daily once a day. Darius Wheat MD cc: [id number] TT: 10/12/2016 13:51:21 Confirmation # [id number] Dictation # [id number] kristine
--- NOTE | 2016-10-12 15:01 | PN ---
DATE: 10/12/2016 SUBJECTIVE: The patient is out of bed in a chair in no acute distress. There is no chest pain or sh ortness of breath. OBJECTIVE: VITAL SIGNS: Blood pressure 127/74, temperature 98.8, pulse 88, respiratory rate 20. LUNGS: Show a few scattered crepitations with an occasional expiratory wheeze. HEART: Regular rate and rhythm. ABDOMEN: Soft, nontender, bowel sounds are normoactive. EXTREMITIES: Without cyanosis, clubbing, or edema. NEUROLOGIC: The patient is awake and alert without focal, sensory or motor deficits. SKIN: Warm and dry. LABORATORY DATA: WBC is 11.4, hemoglobin 12.1, hematocrit 36.5. Sodium 139, potassium 4.4, chloride 103, CO2 26, BUN 47, creatinine 1.3, glucose 126. BNP is elevated at 857. IMPRESSION: 1. Exacerbation of chronic obstructive pulmonary disease with bronchitis. 2. Hypertension, hypertensive cardiovascular disease and mild congestive heart failure. 3. Degenerative joint disease. 4. Mild Alzheimer disease. PLAN: Continue empiric IV antibiotics with Rocephin and Zithromax. The patient has been seen in [facility] by cardiology, Dr. Wheat, and has been started on Lasix 40 mg daily. The patient has been s een in consultation from pulmonary, Dr. Cavazos. Continue physical therapy and social work for discha rge planning. We will get a TCU evaluation. Eugenio Aguayo JD, MD cc: [id number] TT: 10/12/2016 15:00:54 Confirmation # [id number] Dictation # [id number] an
--- NOTE | 2016-10-12 21:44 | PN ---
DATE: 10/12/2016 REFERRING PHYSICIAN: Dr. Aguayo. SUBJECTIVE: He is lying in the bed, head at 45 degrees, comfortable. Decreased cough and shortness of breath. No chest pain, no nausea, no vomiting, diarrhea. No leg pain or leg swelling. OBJECTIVE: GENERAL: No acute distress. VITAL SIGNS: Temp is 98, heart rate is 98, respiratory rate is 20, blood pressure 127/74, pulse ox 9 4% on room air. HEENT: Moist mucous membranes. Crowded airway. Mallampati score is 4. He is edentulous. NECK: Supple, no JVD. LUNGS: He has a few scattered rhonchi. Overall, fair airflow. HEART: S1 and S2. ABDOMEN: Soft, nontender. No organomegaly. EXTREMITIES: No edema. NEUROLOGIC: Awake, alert, follows simple commands. MEDICATIONS: He is on Brovana 15 mcg inhaled twice a day, Cozaar 25 mg daily, ____ nebulizer q. 4 ho urs, Exelon 9.5 mg patch daily, Lasix 40 mg daily. His home medications, mirabegron 50 mg daily, Brayden apex 0.125 mg at bedtime, Protonix 40 mg daily, Pulmicort inhaled twice a day, Rocephin 1 gram daily, Singulair 10 mg daily, Solu-Medrol 40 mg q. 12 hours, Tylenol on a p.r.n. basis, Zithromax 500 mg da shirley. LABORATORY DATA: Shows hemoglobin is 12.1, hematocrit 36.5, WBC 11.4, platelet is 175. Sodium 139, potassium 4.4, chloride 103, bicarbonate 26, BUN 34, creatinine 1.6, glucose 126, calcium is 8.8, AST 29, ALT 32, alkaline phosphatase is 126. ProBNP 857. Procalcitonin 0.05. Microbiology: Blood cul tures have been negative. IMPRESSION AND PLAN: Exacerbation of chronic obstructive lung disease, hypertension, Alzheimer type dementia, degenerative joint disease. He is edentulous. Has a ____ regular diet, so diet has been ch anged to pureed with ____. Spoke to patient's family at bedside. All their questions were answered. We will keep head elevated at 45 degrees. Continue IV and inhaled bronchodilator for another day o r so. Gastric prophylaxis. DVT prophylaxis. Aspiration precautions. Out of bed to chair if possib le. Will follow with you. Karishma Cavazos MD cc: [id number] TT: 10/12/2016 21:44:02 Confirmation # [id number] Dictation # [id number] rn
[2016-10-13] MEDS: Albuterol-Ipratrop 3 mg / 0.5 (3 ml) UD IH SCH ×4 (04:45→14:34)
[2016-10-13] MEDS: Arformoterol 15 mcg/2 ml Inh Sol IH SCH (07:39)
[2016-10-13] MEDS: Budesonide 0.5 mg/2 ml Inhal Susp UD IH SCH (07:40)
[2016-10-13] MEDS: Pantoprazole 20 mg EC Tab PO SCH (08:27)
--- NOTE | 2016-10-13 08:39 | PN ---
DATE: 10/13/2016 The patient is comfortable in bed. PHYSICAL EXAMINATION: VITAL SIGNS: Blood pressure is 107/67, the heart rate is in the 80s. NECK: Negative JVD. LUNGS: Without rales. HEART: Revealed S1, S2. EXTREMITIES: Without edema. Hemoglobin is 12.1. IMPRESSION: 1. Exacerbation of chronic obstructive pulmonary disease. 2. Dyspnea has improved. 3. Prerenal azotemia. 4. No evidence for congestive heart failure. The patient is tolerating decreasing Lasix dosage. The patient is for TCU evaluation. Darius Wheat MD cc: [id number] TT: 10/13/2016 08:38:08 Confirmation # [id number] Dictation # [id number] en
[2016-10-13 09:06] VITALS: O2SAT 94
[2016-10-13] MEDS ORDERED: MethylPREDNISolone 40 mg Vial IVP SCH (09:50)
[2016-10-13] MEDS: Mirabegron [Myrbetriq] 50 MG (HOME MED) PO SCH (10:18)
[2016-10-13] MEDS: cefTRIAXone 1 gm 100 ML IVPB SCH (10:18)
[2016-10-13] MEDS: Azithromycin 500MG/NS 250ml 250 ML IVPB SCH (12:00)
--- NOTE | 2016-10-13 12:34 | CT ---
CT scan chest dated 10/13/2016. . History: Abnormal lung sounds. Contiguous axial images of the chest performed without oral or intravenous contrast material. The. Coronal and Sagittal reformats generated. Comparison made with chest radiograph 10/07/2016 Radiation dose: Total exam DLP = 438.37 mGy-cm. This CT exam was performed using one or more of the following dose reduction techniques: Automated exposure control, adjustment of the mA and/or kV according to patient size, and/or use of iterative reconstruction technique. Findings findings: Heart size is within range of normal. No significant pericardial effusion. Coronary artery calcifications are present. Ascending thoracic aorta measures approximately 3.3 cm. Descending thoracic aorta measures approximately 2.8 cm. Partially calcified atherosclerotic plaque changes are present along the thoracic aorta most notably at the level of the aortic arch. Three-vessel arch. . Note is made of endovascular stent graft in the mid to lower abdominal aorta incompletely visualized. The Pulmonary trunk measures approximately 3.2 cm Multiple on small nonspecific there are several small nonspecific mediastinal lymph nodes. Evaluation for hilar adenopathy is limited due to the lack of circulating intravenous contrast material. Few small nonspecific bilateral axillary lymph nodes are present. . Central airways are midline and patent. No endobronchial lesions are identified. Moderately large hiatal hernia is present. Thyroid gland is slightly heterogeneous likely due to crossing streak and beam hardening artifact arising from dense clavicles and shoulder girdles as well as left upper extremity which has not been completely removed from the field of view. . Evaluation of the lung parenchyma reveals no focal consolidation or effusion. There appear to be some minor bibasilar atelectatic and or scarring changes. No evidence of pneumothorax. Pancreas is slightly atrophic and fatty replaced. Dense vascular calcifications of the splenic artery. Left adrenal gland is slightly nodular in appearance. . The remaining visualized upper abdominal structures appear grossly unremarkable No acute compression fractures of the visualized thoracic spine. Multilevel degenerative spondylosis. There is also a mild dextroscoliosis of the mid to upper thoracic region. Impression: Mild bibasilar atelectasis and or scarring. No evidence of acute infiltrate effusion or pneumothorax. Moderately large hiatal hernia. The nodular appearing left adrenal gland. Endovascular stent grafts seen within the mid to lower abdominal aorta. .
--- NOTE | 2016-10-13 13:26 | PN ---
DATE: 10/13/2016 SUBJECTIVE: The patient is out of bed in a chair in no acute distress. There is no chest pain or sh ortness of breath. OBJECTIVE: VITAL SIGNS: Blood pressure 138/78, temperature 98.6, pulse 84, respiratory rate 22. LUNGS: Clear. HEART: Regular rate and rhythm. ABDOMEN: Soft, nontender, bowel sounds are normoactive. EXTREMITIES: Without cyanosis, clubbing, or edema. NEUROLOGIC: The patient is awake and alert without focal sensory or motor deficits. SKIN: Warm and dry. LABORATORY DATA: CT scan of the chest shows no acute lung infiltrates or masses. IMPRESSION: 1. Exacerbation of chronic obstructive pulmonary disease with bronchitis, improved. 2. Hypertension, hypertensive cardiovascular disease and mild congestive heart failure. 3. Degenerative joint disease. 4. Mild Alzheimer disease. PLAN: Continue IV antibiotics, Lasix. Pulmonary followup with Dr. Cavazos and cardiology followup [facility] Dr. Wheat. Physical therapy evaluation. Social work for discharge planning. TCU evaluation is pe nding. Eugenio Aguayo JD, MD cc: [id number] TT: 10/13/2016 13:25:52 Confirmation # [id number] Dictation # [id number]
--- NOTE | 2016-10-13 14:17 | PN ---
DATE: 10/13/2016 REFERRING PHYSICIAN: Dr. Aguayo. SUBJECTIVE: He is lying in the bed, head at 45 degrees, feels better, decreased cough, decreased shayy rtness of breath. No nausea, no vomiting, no diarrhea, no leg pain or leg swelling. OBJECTIVE: GENERAL: In no acute distress. VITAL SIGNS: Temp is 98, heart rate is 84, respiratory rate is 22, blood pressure 138/78, pulse ox 9 4% on 2 L nasal cannula. HEENT: Moist mucous membranes. Crowded airway. Mallampati score is 4. NECK: Supple, no JVD. LUNGS: Have a fair airflow with a few rhonchi. HEART: S1, S2. ABDOMEN: Soft, nontender. No organomegaly. EXTREMITIES: There is no edema. NEUROLOGIC: Awake, alert, follows simple commands. MEDICATIONS: He is on Brovana 15 mcg inhaled twice a day, Cozaar 25 mg daily, DuoNeb q. 4 hours p.r. n., Exelon 9.5 mg weekly, Lasix 40 mg daily. Home medication is myrbetriq 50 mg daily, Mirapex 0.125 mg at bedtime, Protonix 20 mg daily, Pulmicort inhaled twice a day, Rocephin 1 gram IV daily, Singul air 10 mg daily, Solu-Medrol 20 mg q. 12 hours, Tylenol p.r.n., Zithromax 500 mg daily. LABORATORY DATA: Reviewed and noted. No new changes in medication reported since yesterday. MICROBIOLOGY: Blood cultures from yesterday have been negative. CAT scan of the chest done today [facility] shows mild bibasilar atelectasis and/or scarring, no evidence of acute infiltrate, effusion or pn eumothorax. Moderate to large factor hernia. There is nodular appearance left adrenal gland, endova scular stent graft seen within the mid to lower abdominal aorta. IMPRESSION AND PLAN: Exacerbation of chronic obstructive lung disease, hypertension, Alzheimer type dementia, degenerative joint disease, clinically improved. We will suggest physical therapy, get him out of bed to chair, ____ fall precaution. Gastric prophylaxis. Deep venous thrombosis prophylaxis . We will start tapering steroids soon. May benefit from TRCU type services. We will follow with jens pate. Karishma Cavazos MD cc: [facility] TT: 10/13/2016 14:16:59 Confirmation # [id number] Dictation # [id number] tn
[2016-10-13 16:35] VITALS: BP 118/86; PULSE 86; RESP 20; TEMP 98
--- NOTE | 2016-10-14 20:57 | DS ---
HOSPITAL COURSE: The patient is an 86-year-old male admitted through the Emergency Department on 09/10 with an exacerbation of COPD and bronchitis. The patient was admitted to the surgical floor, treated with nebulizers as well as IV Rocephin and Zithromax with improvement. He was seen in [facility] by [facility], Dr. Cavazos. He was given a course of intravenous steroids and was medically stable for transfer to the transitional care unit on 10/13/2016. Physical examination and vital signs are as per progress note dictated 10/13/2016. DISCHARGE MEDICATIONS: The patient was transferred on the following medications: Losartan 25 mg cory ly, Brovana 15 mcg q. 12 hours, mirabegron 50 mg daily, Exelon patch 9.5 mg daily, Lasix 40 mg daily, Mirapex 0.125 mg daily, Lasix 40 mg daily, DuoNebs inhaled q. 3 hours, Pulmicort Respules 0.5 mg inh aled q. 12 hours, Protonix 20 mg daily, Singulair 10 mg daily, Zithromax 500 mg p.o. daily. IMPRESSION: 1. Exacerbation of chronic obstructive pulmonary disease. 2. Hypertension, hypertensive cardiovascular disease and mild congestive heart failure. 3. Degenerative joint disease. 4. Mild to moderate Alzheimer's disease. PLAN: The patient will be transferred to TCU. He will be maintained on a heart-healthy diet, activi ties as per subacute rehab unit. Eugenio Aguayo JD, MD cc: [id number] TT: 10/14/2016 20:56:48 kath
--- NOTE | 2017-02-03 13:18 | ACR ---
ADMINISTRATIVE CLOSURE OF RECORDS Date of Note: 02/03/17 Physician's Name: NAN HERRERA APN This record is being administratively closed for the following reason: [ ] The physician on . [ X ] The physician is no longer available to complete medical records physician resigned on 10/10/16. [ ] The person responsible is no longer [employer] [facility] employee as of _ ____. [ ] The person responsible cannot be identified. [ ] The records has missing and/or incomplete forms. The following documents were not electronically signed: [ ] History & Physical [ ] Discharge Summary [ ] Operative Report(s) [ ] Progress Notes(s) [ X ] Orders(s) [ ] Other Missing/Incomplete forms: [ ] History & Physical [ ] Discharge Summary [ ] Operative Report(s) [ ] Progress Notes(s) [ ] Orders(s) [ ] Other Approved for filing by Medical Executive Committee/Medical Records Committee on 10/10/16. Thank you, [facility] [employer] Jayda Estes M.D. Family Assessment Worker [facility]
== END 2016-10-13 18:48 | DRG 190 ==
LOC: ED 13:00 → ERH 16:22 → 5RSO 18:38 → OBSVTOIN 10-08 14:16
PROVIDERS: ADMIT Internal Medicine; ATTEND Internal Medicine
PROC: 3E0F7GC Introduction of Other Therapeutic Substance into Respiratory Tract, Via Natural or Artificial Opening (ICD-10-PCS; principal; 2016-10-07)
DX: J44.1 Chronic obstructive pulmonary disease with (acute) exacerbation (principal); I50.43 Acute on chronic combined systolic (congestive) and diastolic (congestive) heart failure; G20 Parkinson's disease; G30.9 Alzheimer's disease, unspecified; F02.80 Dementia in other diseases classified elsewhere, unspecified severity, without behavioral disturbance, psychotic disturbance, mood disturbance, and anxiety; I11.0 Hypertensive heart disease with heart failure; I25.10 Atherosclerotic heart disease of native coronary artery without angina pectoris; K21.9 Gastro-esophageal reflux disease without esophagitis; M94.0 Chondrocostal junction syndrome [Tietze]; R79.89 Other specified abnormal findings of blood chemistry; M19.90 Unspecified osteoarthritis, unspecified site; K44.9 Diaphragmatic hernia without obstruction or gangrene; I71.4 Abdominal aortic aneurysm, without rupture; Z95.5 Presence of coronary angioplasty implant and graft; Z87.891 Personal history of nicotine dependence

== ENCOUNTER 2016-10-13 18:45 | Inpatient (IN) | payer OTHER, BC ==
[2016-10-13 20:12] VITALS: BMI 22.5
[2016-10-13] MEDS: Albuterol-Ipratrop 3 mg / 0.5 (3 ml) UD IH SCH (23:12)
[2016-10-13] MEDS ORDERED: Pneumococcal 23-Valent Vaccine IM ONE (23:18)
[2016-10-14] MEDS: Pantoprazole 20 mg EC Tab PO SCH (05:41)
[2016-10-14] MEDS: Albuterol-Ipratrop 3 mg / 0.5 (3 ml) UD IH SCH ×5 (07:22→23:19)
[2016-10-14] MEDS: Arformoterol 15 mcg/2 ml Inh Sol IH SCH ×2 (07:22→20:28)
[2016-10-14] MEDS: Budesonide 0.5 mg/2 ml Inhal Susp UD IH SCH ×2 (07:23→20:29)
[2016-10-14] MEDS: MIRABEGRON 50 MG PO SCH (09:55)
--- NOTE | 2016-10-14 13:40 | PN ---
DATE: 10/14/2016 SUBJECTIVE: The patient is in the TCU participating with physical therapy. No shortness of breath. No chest pain. PHYSICAL EXAMINATION: VITAL SIGNS: Blood pressure is 137/70, heart rate is in the 80s. NECK: Negative JVD. LUNGS: Without rales. HEART: S1, S2. EXTREMITIES: Without edema. LABORATORIES: BUN and creatinine were not done today. IMPRESSION: 1. Status post exacerbation of chronic obstructive pulmonary disease. 2. Dyspnea which is improved. 3. Prerenal azotemia. 4. Diabetes mellitus. 5. Weakness. PLAN: Given these findings, we will obtain chemistries to relook at his BUN and creatinine. Darius Wheat MD cc: [id number] TT: 10/14/2016 13:39:41 Confirmation # [id number] Dictation # [id number] elli
--- NOTE | 2016-10-14 16:51 | HP ---
HISTORY OF PRESENT ILLNESS: The patient is an 86-year-old male with a history of COPD secondary to t obacco who was admitted to the [facility] or 10/08/2016 for exacerbation of COPD. He was treated with IV Rocephin and Zithromax as well as nebulizer treatments and IV steroids, seen in consu ltation by Dr. Cavazos for pulmonary and was transferred to the transitional care unit for continued I V antibiotics and subacute rehab post-hospitalization on 10/13/2016. PAST MEDICAL HISTORY: Includes COPD, hypertension, hypertensive cardiovascular disease and early con gestive heart failure, degenerative joint disease, and mild to moderate Alzheimer's disease. PAST SURGICAL HISTORY: Includes status post abdominal aortic stent placement for abdominal aortic an eurysm. CURRENT MEDICATIONS: Include mirabegron 50 mg daily for overactive bladder, Brovana 15 mcg inhaled q . 12 hours, losartan 25 mg daily, DuoNeb inhaled q. 4 hours, Exelon 9.5 mg per day patch, Lasix 40 mg daily, Mirapex 0.25 mg at bedtime for restless leg syndrome, Protonix 20 mg daily, Pulmicort 0.5 mg inhaled q. 12 hours, Singulair 10 mg daily, Zithromax 500 mg p.o. daily. ALLERGIES: The patient has no known drug allergies. SOCIAL HISTORY: The patient smokes approximately 1/2 pack per day and has a greater than 50-pack-yea r history of tobacco use. There is no history of alcohol use. He lives with his daughter. He needs assistance with IADLs and is independent with ADLs. REVIEW OF SYSTEMS: The patient denies any chest pain, shortness of breath. No nausea, no vomiting, no diarrhea, no melena, no bright red blood per rectum, no jaundice, no fevers or chills at the prese nt time. PHYSICAL EXAMINATION: GENERAL: The patient is a slightly cachectic male in no acute distress. VITAL SIGNS: Blood pressure 103/63, temperature 98.3, respiratory rate 20, pulse is 86. HEENT: Head is normocephalic, atraumatic. Pupils equal, round and reactive to light. Extraocular m ovements intact. NECK: Supple, with no thyromegaly, no carotid bruit, no adenopathy. LUNGS: Show a few crepitations bilaterally. HEART: Regular rate and rhythm. ABDOMEN: Soft, nontender, bowel sounds are normoactive. EXTREMITIES: Without cyanosis, clubbing, or edema. NEUROLOGIC: The patient is awake and alert without focal, sensory or motor deficits. SKIN: Warm and dry. IMPRESSION: 1. Exacerbation of chronic obstructive pulmonary disease with bronchitis. 2. Hypertension, hypertensive cardiovascular disease and early congestive heart failure. 3. Degenerative joint disease. 4. Mild to moderate Alzheimer's disease. 5. Status post stent graft placement, abdominal aortic aneurysm. 6. Restless leg syndrome. 7. Overactive bladder. PLAN: The patient is admitted to the subacute care unit for continued IV antibiotics and subacute re habilitation for deconditioning. He will be seen in pulmonary consultation by Dr. Cavazos. [facility] for discharge planning. Eugenio Aguayo JD, MD cc: 353 TT: 10/14/2016 16:50:32 rn
[2016-10-15] MEDS: Albuterol-Ipratrop 3 mg / 0.5 (3 ml) UD IH SCH ×5 (05:49→20:21)
[2016-10-15] MEDS: Pantoprazole 20 mg EC Tab PO SCH (06:21)
[2016-10-15] MEDS: Budesonide 0.5 mg/2 ml Inhal Susp UD IH SCH ×2 (07:13→20:21)
[2016-10-15] MEDS: Arformoterol 15 mcg/2 ml Inh Sol IH SCH ×2 (07:13→20:21)
--- NOTE | 2016-10-15 07:55 | CON ---
DATE: 10/14/2016 REFERRING PHYSICIAN: Dr. Aguayo REASON FOR CONSULTATION: Cough and shortness of breath. HISTORY OF PRESENT ILLNESS: This is an 86-year-old male with past medical history significant for ch ronic obstructive lung disease, hypertension, history of congestive heart failure, degenerative joint disease, Alzheimer type dementia, who was admitted acute side of the hospital. Now transferred to [facility] for continued care. He is lying in the bed, feels a little better, still has some cough, sputum production. No nausea, no vomiting, no diarrhea. No leg pain or leg swelling. PAST MEDICAL HISTORY: Chronic obstructive lung disease, hypertension, heart failure, Alzheimer type dementia. ALLERGIES: None known. SOCIAL HISTORY: Positive history of smoking in the past. Denied any alcohol use. FAMILY HISTORY: No significant cardiopulmonary disease reported. ALLERGIES: None known. MEDICATIONS: He is on Brovana 15 mcg inhaled twice a day, Cozaar 25 mg daily, DuoNeb q. 4 hours, Exe katelyn 9.5 mg daily, Lasix 40 mg daily. He is on Myrbetriq 50 mg daily, MiraLax 0.125 mg at bedtime, Pr otonix 20 mg daily, Pulmicort inhaled twice a day, Singulair 10 mg daily, Tylenol p.r.n. basis, Zithr omax 500 mg daily. REVIEW OF SYSTEMS: No headache, no rhinitis. Still has a cough, but improved, not much sputum produ ction. No chest pain, no nausea, no vomiting, no diarrhea. No leg pain or leg swelling. PHYSICAL EXAMINATION: GENERAL: Lying in the bed, no acute distress. VITAL SIGNS: Temp is 98, heart rate is 86, respiratory rate is 20, blood pressure 103/63, pulse ox 9 5% on room air. HEENT: Moist mucous membranes. Crowded airway. Mallampati score is 4. NECK: Supple. No JVD. LUNGS: Have scattered rhonchi, prolonged expiratory phase. HEART: S1 and S2. ABDOMEN: Soft, nontender. No organomegaly. EXTREMITIES: There is no edema. NEUROLOGIC: Awake, alert, follows simple commands. LABORATORY DATA: Reviewed. No new lab is available. IMPRESSION AND PLAN: Exacerbation of chronic obstructive lung disease, hypertension, Alzheimer type dementia, degenerative joint disease. Slowly improving. Spoke to patient's daughter at bedside. Al jazmine their questions answered. Aspiration precaution. Keep head elevated at 45 degrees. Gastric proph ylaxis. Deep venous thrombosis prophylaxis. Antibiotics. Will place back on prednisone 20 mg daily . Continue inhaled bronchodilator. Continue therapy. Thank you and will follow with you. Karishma Cavazos MD cc: [id number] TT: 10/15/2016 07:55:21 Confirmation # [id number] Dictation # [id number] en
[2016-10-15 08:32] LABS: ALB/GLOB RATIO 1.1 (1.1-1.8); BILIRUBIN,TOTAL 1.4 mg/dL (0.2-1.3); CALCIUM 8.8 mg/dL (8.4-10.5); POTASSIUM 4.5 mmol/L (3.6-5.0)
[2016-10-15] MEDS: MIRABEGRON 50 MG PO SCH (10:16)
--- NOTE | 2016-10-15 10:25 | PN ---
DATE: 10/15/2016 The patient is doing physical therapy at the gym without shortness of breath, without chest pain. Blood pressure is 103/63, the heart rate is in the 80s. NECK: Negative JVD. LUNGS: Without rales. HEART: Reveals S1, S2. EXTREMITIES: Without edema. LABORATORIES: BUN and creatinine is 50/1.4. IMPRESSION: 1. Chronic obstructive pulmonary disease. 2. No evidence for congestive heart failure. 3. Prerenal azotemia. 4. Diabetes mellitus. 5. Weakness, which is improved. Given these findings, we will hold the Lasix for today and decrease to 20 daily starting tomorrow. Darius Wheat MD cc: [id number] TT: 10/15/2016 10:24:11 Confirmation # [id number] Dictation # [id number] kristine
--- NOTE | 2016-10-15 17:52 | PN ---
DATE: 10/15/2016 SUBJECTIVE: The patient is lying in bed in no acute distress. There is no chest pain, no shortness of breath. There is a slight cough. OBJECTIVE: VITAL SIGNS: Blood pressure 95/60, temperature 98.1, pulse 94, respiratory rate 18. LUNGS: Show a few scattered crepitations bilaterally. HEART: Regular rate and rhythm. ABDOMEN: Soft, nontender. Bowel sounds are normoactive. EXTREMITIES: Without cyanosis, clubbing, or edema. NEUROLOGIC: The patient is awake and alert without focal sensory or motor deficits. SKIN: Warm and dry. IMPRESSION: 1. Exacerbation of chronic obstructive pulmonary disease with bronchitis. 2. Hypertension, hypertensive cardiovascular disease and mild congestive heart failure. 3. Degenerative joint disease. 4. Mild Alzheimer's disease. 5. Abdominal aortic aneurysm, status post stent graft placement. 6. Restless legs syndrome. 7. Overactive bladder. PLAN: Continue subacute rehab. Pulmonary followup with Dr. Cavazos, cardiology followup with Dr. Lazaro javier. Shayla will decrease prednisone to 10 mg a day. Continue taper as tolerated. Check labs in a.m. Soc ial work for discharge planning. Eugenio Aguayo JD, MD cc: 353 TT: 10/15/2016 17:52:12 Confirmation # [id number] Dictation # [id number] tn
--- NOTE | 2016-10-15 21:10 | PN ---
DATE: 10/15/2016 REFERRING PHYSICIAN: Dr. Aguayo. SUBJECTIVE: He is lying in the bed, head at 45 degree. Daughter is at bedside. Feels better, did w ell in therapy. Decreased cough, decreased shortness of breath. No nausea, vomiting, diarrhea. No leg pain or leg swelling. OBJECTIVE: GENERAL: No acute distress. VITAL SIGNS: Temperature is 98, heart rate is 94, respiratory rate is 20, blood pressure 95/60, puls e ox 94% on room air. HEENT: Moist mucous membrane. Crowded airway. Mallampati score is 4. NECK: Supple. No JVD. LUNGS: Has a few scattered rhonchi, overall better airflow. HEART: S1, S2. ABDOMEN: Soft, nontender. No organomegaly. EXTREMITIES: There is no edema. NEUROLOGIC: Sleepy, arousable, follows simple command. MEDICATIONS: He is on Brovana 15 mcg inhaled twice a day, DuoNeb q, 6 hours, Exelon 1 patch daily, L asix 20 mg daily, Myrbetriq 50 mg daily, MiraLax 0.125 mg at bedtime, prednisone 10 mg daily, Protoni x 20 mg daily, Pulmicort inhaled twice a day, Singulair 10 mg daily, Tylenol p.r.n. basis, Zithromax 500 mg daily. LABORATORY DATA: Shows sodium 139, potassium 4.5, chloride 100, bicarbonate 28, BUN 50, creatinine 1 .4, glucose 102, calcium 8.8, total bilirubin 1.4, AST 25, ALT 43, alkaline phosphatase is 128, album in 3.6. IMPRESSION AND PLAN: Exacerbation of chronic obstructive lung disease, hypertension, Alzheimer type dementia, degenerative joint disease. Slowing improving. I spoke to patient's daughter at bedside. All the questions answered. Continue p.o. and inhaled bronchodilator, antibiotics, gastric prophyla xis, deep venous thrombosis prophylaxis, ____ Continue therapy. Thank you and will follow with you. Karishma Cavazos MD cc: 336 TT: 10/15/2016 21:09:39 Confirmation # [id number] Dictation # [id number] kristine
[2016-10-16] MEDS: Albuterol-Ipratrop 3 mg / 0.5 (3 ml) UD IH SCH ×6 (00:31→19:25)
[2016-10-16] MEDS: Pantoprazole 20 mg EC Tab PO SCH (06:09)
[2016-10-16 07:14] LABS: ADD MANUAL DIFF? NO
[2016-10-16 07:23] LABS: BASO # 0.01 K/mm3 (0.0-2.0); BASO % 0.1 % (0.0-3.0); EOS # 0.8 (0.0-0.7); GRAN # 7.85 (1.4-6.5); GRAN % 65.7 % (50.0-68.0); HEMATOCRIT 40.6 % (42.0-52.0); LYMPH % 16.8 % (22.0-35.0); MEAN CELL VOLUME 91.6 fL (80.0-105.0); MEAN CORPUSCULAR HEMOGLOBIN 30.2 pg (25.0-35.0); MEAN PLATELET VOLUME 9.3 fl (7.0-11.0); MONO # 1.2 (0.1-0.6); MONO % 10.4 % (1.0-6.0); PLATELET COUNT 126 10^3/uL (120.0-450.0); RED CELL DISTRIBUTION WIDTH 13.5 % (11.5-14.5); WHITE BLOOD COUNT 11.9 10^3/ul (4.5-11.0)
[2016-10-16] MEDS: Budesonide 0.5 mg/2 ml Inhal Susp UD IH SCH ×2 (07:30→19:26)
[2016-10-16] MEDS: Arformoterol 15 mcg/2 ml Inh Sol IH SCH ×2 (07:30→19:25)
[2016-10-16 07:34] LABS: ALB/GLOB RATIO 1.1 (1.1-1.8); BILIRUBIN,TOTAL 1.1 mg/dL (0.2-1.3); CALCIUM 8.6 mg/dL (8.4-10.5); POTASSIUM 4.2 mmol/L (3.6-5.0); TOTAL PROTEIN 6.9 g/dL (5.8-8.3)
[2016-10-16] MEDS: MIRABEGRON 50 MG PO SCH (11:00)
--- NOTE | 2016-10-16 14:13 | PN ---
DATE: 10/16/2016 SUBJECTIVE: The patient is out of bed ambulating, in no acute distress. There is no chest pain, no shortness of breath. OBJECTIVE: VITAL SIGNS: Blood pressure 97/56, temperature 98.1, pulse 94, respiratory rate 18. LUNGS: Clear. HEART: Regular rate and rhythm. ABDOMEN: Soft, nontender, bowel sounds are normoactive. EXTREMITIES: Without cyanosis, clubbing, or edema. NEUROLOGIC: The patient is awake and alert without focal, sensory or motor deficits. SKIN: Warm and dry. LABORATORY DATA: WBC is 11.9, hemoglobin 13.4, hematocrit 40.6. Sodium 137, potassium 4.2, chloride 99, CO2 of 27, BUN 58, creatinine 1.4, glucose 103. IMPRESSION: 1. Exacerbation of chronic obstructive pulmonary disease with bronchitis. 2. Hypertension, hypertensive cardiovascular disease and mild congestive heart failure. 3. Degenerative joint disease. 4. Mild Alzheimer's disease. 5. Abdominal aortic aneurysm, status post stent graft placement. PLAN: We will discontinue Lasix secondary to mild hypotension. Continue pulmonary followup with Dr. Cavazos and cardiology followup with Dr. Wheat. Continue to taper oral steroids. Social work for dis charge planning. Eugenio Aguayo JD, MD cc: 353 TT: 10/16/2016 14:13:01 Confirmation # [id number] Dictation # [id number] elli
--- NOTE | 2016-10-16 19:18 | PN ---
DATE: 10/16/2016 REFERRING PHYSICIAN: Dr. Aguayo. SUBJECTIVELY: He is lying in the reclining chair. Family is at bedside. Night was unremarkable. S lowly feeling better. No rhinitis, decreased cough, decreased shortness of breath. No nausea, vomit ing, diarrhea, leg pain, or leg swelling. Doing well in therapy. OBJECTIVELY: In no acute distress. Temp is 98, heart is 82, respiratory rate is 20, blood pressure 97/56, pulse ox 94% on room air. HENT: Moist mucous membranes. Crowded airway. NECK: Supple, no JVD. LUNGS: Have a fair airflow with a few rhonchi. HEART: S1, S2. ABDOMEN: Soft, nontender. No organomegaly. EXTREMITIES: No edema. NEUROLOGICAL: Sleepy, arousable. Follows simple commands. MEDICATIONS: He is on Brovana 15 mcg inhaled twice a day, DuoNeb q. 4 hours, Exelon 1 patch daily, M yrbetriq 50 mg daily, Mirapex 0.125 mg at bedtime, prednisone 10 mg daily, Protonix 20 mg daily, Pulm icort inhaled twice a day, Singulair 10 mg daily, Tylenol p.r.n. basis, Zithromax 500 mg daily. LABORATORY DATA: Shows hemoglobin 13.4, hematocrit 40.6, WBC 11.9, platelets are 126. Sodium 137, p otassium 4.2, chloride 99, bicarbonate 27, BUN 58, creatinine 1.4, calcium is 8.6, total bili 1.1. A ST 24, ALT 43, alk phos is 120. IMPRESSION AND PLAN: Exacerbation of chronic obstructive lung disease, hypertension, Alzheimer type dementia, degenerative joint disease, activities of daily living dysfunction. I spoke to patient's family at bedside. All the questions answered. Will decrease prednisone to 5 m g daily. Continue inhaled bronchodilator. Gastric prophylaxis. DVT prophylaxis. Fall precaution. Thank you, and will follow with you. Karishma Cavazos MD cc: 336 TT: 10/16/2016 19:17:39 Confirmation # [id number] Dictation # [id number] kristine
[2016-10-17] MEDS: Albuterol-Ipratrop 3 mg / 0.5 (3 ml) UD IH SCH ×7 (00:04→23:31)
[2016-10-17] MEDS: Pantoprazole 20 mg EC Tab PO SCH (05:56)
[2016-10-17] MEDS: Arformoterol 15 mcg/2 ml Inh Sol IH SCH ×2 (07:48→20:09)
[2016-10-17] MEDS: Budesonide 0.5 mg/2 ml Inhal Susp UD IH SCH ×2 (07:48→20:09)
[2016-10-17] MEDS: MIRABEGRON 50 MG PO SCH (10:50)
--- NOTE | 2016-10-17 15:23 | PN ---
DATE: 10/17/2016 SUBJECTIVE: The patient is sitting out of bed in a chair, in no acute distress. There is no chest p ain or shortness of breath. OBJECTIVE: VITAL SIGNS: Blood pressure 129/71, temperature 97.9, pulse 80, respiratory rate 18. LUNGS: Show a few scattered crepitations, occasional end-expiratory wheeze. HEART: Regular rate and rhythm. ABDOMEN: Soft, nontender, bowel sounds are normoactive. EXTREMITIES: Without cyanosis, clubbing, or edema. NEUROLOGIC: The patient is awake and alert without focal, sensory or motor deficits. SKIN: Warm and dry. IMPRESSION: 1. Exacerbation of chronic obstructive pulmonary disease with bronchitis. 2. Hypertension, hypertensive cardiovascular disease and mild congestive heart failure. 3. Degenerative joint disease. 4. Mild Alzheimer disease. 5. Abdominal aortic aneurysm, status post stent graft placement. PLAN: Continue pulmonary followup with Dr. Cavazos, cardiology followup with Dr. Wheat. Taper steroid s as tolerated. Social work for discharge planning. Eugenio Aguayo JD, MD cc: 353 TT: 10/17/2016 15:22:20 Confirmation # [id number] Dictation # [id number] en
--- NOTE | 2016-10-17 18:18 | PN ---
DATE: 10/17/2016 REFERRING PHYSICIAN: . SUBJECTIVE: She is out of bed to reclining chair. Daughter is at bedside. On nebulizer treatment. Has some dry cough. No sputum production, no nausea, no vomiting, diarrhea. No leg pain or leg swe lling. OBJECTIVE: GENERAL: No acute distress. VITAL SIGNS: Temperature is 98, heart rate 81, respiratory rate is 20, blood pressure 124/75, pulse ox 94% on room air. HEENT: Moist mucous membranes. Crowded airway. NECK: Supple, no JVD. LUNGS: Have a fair airflow with few rhonchi. HEART: S1, S2. ABDOMEN: Soft, nontender. No organomegaly. EXTREMITIES: There is no edema. NEUROLOGIC: Awake, alert, follows simple commands. MEDICATIONS: He is on Brovana 15 mcg inhaled twice a day, DuoNeb q. 4 hours p.r.n., Exelon 9.5 mg pa tch daily, Mirapex 0.125 mg at bedtime, prednisone 5 mg daily, Protonix 20 mg daily, Pulmicort inhale d twice a day, Singulair 10 mg daily, Tylenol p.r.n. basis, Zithromax 500 mg daily. LABORATORY DATA: Reviewed and noted. No new lab is available since yesterday. IMPRESSION AND PLAN: Exacerbation of chronic obstructive lung disease, hypertension, Alzheimer type dementia, degenerative joint disease, activities of daily living dysfunction. Spoke to patient's natali ghter at bedside. All their questions answered. Continue p.o. and inhaled bronchodilator. Keep hea d elevated at 45 degrees. Gastric prophylaxis, deep venous thrombosis prophylaxis. Continue therapy . Fall precautions. Will follow with you. Karishma Cavazos MD cc: 336 TT: 10/17/2016 18:17:05 Confirmation # [id number] Dictation # [id number] elli
[2016-10-18] MEDS: Albuterol-Ipratrop 3 mg / 0.5 (3 ml) UD IH SCH ×6 (04:34→23:20)
[2016-10-18] MEDS: Pantoprazole 20 mg EC Tab PO SCH (06:31)
[2016-10-18] MEDS: Arformoterol 15 mcg/2 ml Inh Sol IH SCH ×2 (07:28→20:24)
[2016-10-18] MEDS: Budesonide 0.5 mg/2 ml Inhal Susp UD IH SCH ×2 (07:29→20:25)
[2016-10-18] MEDS: MIRABEGRON 50 MG PO SCH (09:53)
--- NOTE | 2016-10-18 15:32 | PN ---
DATE: 10/18/2016 SUBJECTIVE: The patient is sitting out of bed in a chair in no acute distress. There is no chest pa in or shortness of breath. OBJECTIVE: VITAL SIGNS: Blood pressure 98/54, temperature 98.4, pulse 80, respiratory rate 20. LUNGS: Clear. HEART: Regular rate and rhythm. ABDOMEN: Soft, nontender, bowel sounds are normoactive. EXTREMITIES: Without cyanosis, clubbing, or edema. NEUROLOGIC: The patient is awake and alert without focal, sensory or motor deficits. SKIN: Warm and dry. IMPRESSION: 1. Exacerbation of chronic obstructive pulmonary disease with bronchitis. 2. Hypertension, hypertensive cardiovascular disease and mild congestive heart failure. 3. Degenerative joint disease. 4. Mild Alzheimer disease. 5. Abdominal aortic aneurysm, status post stent graft placement. PLAN: Continue pulmonary followup with Dr. Cavazos, cardiology followup with Dr. Wheat. Taper steroid s as tolerated. Social work for discharge planning. Eugenio Aguayo JD, MD cc: 353 TT: 10/18/2016 15:31:26 Confirmation # [id number] Dictation # [id number]
--- NOTE | 2016-10-18 20:59 | PN ---
DATE: 10/18/2016 REFERRING PHYSICIAN: Dr. Aguayo. SUBJECTIVE: He is lying in the reclining chair. Just come back from therapy. Night was unremarkabl e. Feels better. Decreased cough, decreased shortness of breath. No nausea, no vomiting or diarrhe a. No leg pain or leg swelling. OBJECTIVE: GENERAL: No acute distress. VITAL SIGNS: Temp is 98, heart rate is 80, respiratory rate is 20, blood pressure 98/54, pulse ox 95 % on room air. HEENT: Moist mucous membrane. No ulcer or thrush noted. NECK: Supple. No JVD. LUNGS: Have fair airflow with a few rhonchi. HEART: S1, S2. ABDOMEN: Soft, nontender. No organomegaly. EXTREMITIES: There is no edema. NEUROLOGIC: Awake, alert, follows simple command. MEDICATIONS: He is on Brovana 15 mcg inhaled twice a day, DuoNeb q. 4 hours, Exelon 9.5 mg daily, Mi raLax 0.125 mg at bedtime, prednisone 5 mg daily, Protonix 20 mg daily, Pulmicort inhaled twice a day , Singulair 10 mg daily, Tylenol p.r.n. basis, Zithromax 500 mg daily. LABORATORY DATA: Reviewed, noted. No new lab is available since yesterday. IMPRESSION AND PLAN: Exacerbation of chronic obstructive lung disease, hypertension, Alzheimer type dementia, degenerative joint disease, activities of daily living dysfunction. From pulmonary point o f view, he is doing okay. Will continue bronchodilator. Keep head at 45 degrees. Aspiration precau tion, fall precaution. Gastric prophylaxis, deep venous thrombosis prophylaxis. Continue therapy. Thank you, and will follow with you. Karishma Cavazos MD cc: 336 TT: 10/18/2016 20:58:36 Confirmation # [id number] Dictation # [id number] mn
[2016-10-19] MEDS: Albuterol-Ipratrop 3 mg / 0.5 (3 ml) UD IH SCH ×6 (04:00→23:37)
[2016-10-19] MEDS: Pantoprazole 20 mg EC Tab PO SCH (06:13)
[2016-10-19] MEDS: Arformoterol 15 mcg/2 ml Inh Sol IH SCH ×2 (07:38→20:17)
[2016-10-19] MEDS: Budesonide 0.5 mg/2 ml Inhal Susp UD IH SCH ×2 (07:39→20:18)
[2016-10-19] MEDS: MIRABEGRON 50 MG PO SCH (10:37)
--- NOTE | 2016-10-19 16:14 | PN ---
DATE: 10/19/2016 SUBJECTIVE: The patient is lying in bed in no acute distress. He denies chest pain or shortness of breath. OBJECTIVE: VITAL SIGNS: Blood pressure 128/78, temperature 98, pulse 84, respiratory rate 20. LUNGS: Show a few scattered rhonchi. HEART: Regular rate and rhythm. ABDOMEN: Soft, nontender, bowel sounds are normoactive. EXTREMITIES: Without cyanosis, clubbing, or edema. NEUROLOGIC: The patient is awake and oriented x 3 without focal sensory or motor deficits. SKIN: Warm and dry. IMPRESSION: 1. Exacerbation of chronic obstructive pulmonary disease with bronchitis. 2. Hypertension, hypertensive cardiovascular disease and mild congestive heart failure. 3. Degenerative joint disease. 4. Mild Alzheimer's disease. 5. Abdominal aortic aneurysm, status post stent graft placement. PLAN: Continue pulmonary followup with Dr. Cavazos, cardiology followup with Dr. Wheat. Continue phys ical therapy and social work for discharge planning. Eugenio Aguayo JD, MD cc: 353 TT: 10/19/2016 16:13:13 Confirmation # [id number] Dictation # [id number] bill
--- NOTE | 2016-10-19 19:50 | PN ---
DATE: 10/19/2016 REFERRING PHYSICIAN: Dr. Aguayo. SUBJECTIVE: He is lying in the bed, head at 45 degree, , doing well in therapy. No nausea, no vomiting, no diarrhea. No leg pain or leg swelling. OBJECTIVE: GENERAL: In no acute distress. VITAL SIGNS: Temp is 98, heart rate is 84, respiratory rate is 20, blood pressure 128/78, pulse ox 9 5% on room air. HEENT: Moist mucous membranes. Crowded airway. NECK: Supple. No JVD. LUNGS: Has a fair airflow with a few rhonchi. HEART: S1, S2. ABDOMEN: Soft, nontender. No organomegaly. EXTREMITIES: There is no edema. NEUROLOGIC: Awake, alert, follows simple commands. MEDICATIONS: Brovana 15 mcg inhaled twice a day, DuoNeb q.4 hours p.r.n., Exelon patch daily, also o n Mirapex 0.125 mg daily, prednisone 5 mg daily, Protonix 20 mg daily, Pulmicort inhaled twice a day, Singulair 10 mg daily, Tylenol p.r.n. basis. LABORATORY DATA: Shows other lab is available since yesterday. IMPRESSION AND PLAN: Chronic obstructive lung disease, hypertension, Alzheimer type dementia, degene rative joint disease, activities of daily living dysfunction. Continue p.o. and inhaled bronchodilat or. Keep head elevated at 45 degrees. Gastric prophylaxis. Deep venous thrombosis prophylaxis. Fa ll precaution. Continue therapy. Thank you and will follow with you. Karishma Cavazos MD cc: 336 TT: 10/19/2016 19:50:21 Confirmation # [id number] Dictation # [id number] kath
[2016-10-20] MEDS: Albuterol-Ipratrop 3 mg / 0.5 (3 ml) UD IH SCH ×5 (04:15→19:56)
[2016-10-20] MEDS: Pantoprazole 20 mg EC Tab PO SCH (06:15)
[2016-10-20] MEDS: Arformoterol 15 mcg/2 ml Inh Sol IH SCH ×2 (07:22→19:56)
[2016-10-20] MEDS: Budesonide 0.5 mg/2 ml Inhal Susp UD IH SCH ×2 (07:22→19:56)
[2016-10-20] MEDS: MIRABEGRON 50 MG PO SCH (10:11)
--- NOTE | 2016-10-20 12:54 | PN ---
DATE: 10/20/2016 REFERRING PHYSICIAN: Dr. Aguayo. SUBJECTIVE: The patient is lying in the reclining chair. Has done well in therapy. Denying any shayy rtness of breath during therapy. Cough is better. No nausea, no vomiting or diarrhea. No leg pain or leg swelling. OBJECTIVE: GENERAL: No acute distress. VITAL SIGNS: Temp is 98, heart rate is 76, respiratory rate is 20, blood pressure 119/68, pulse ox 9 8% on room air. HEENT: Moist mucous membranes. Crowded airway. Mallampati score is 4. NECK: Supple. No JVD. LUNGS: Have fair airflow with a few rhonchi. HEART: S1, S2. ABDOMEN: Soft, nontender. No organomegaly. EXTREMITIES: There is no edema. NEUROLOGIC: Awake, alert, follows simple commands. MEDICATIONS: He is on Brovana 15 mcg inhaled twice a day, DuoNeb q. 4 hours, Exelon patch daily, Mi rapex 0.125 mg at bedtime, prednisone 5 mg daily, Protonix 20 mg daily, Pulmicort inhaled twice a day , Singulair 10 mg daily, Tylenol p.r.n. basis. LABORATORY DATA: Reviewed. No new lab is available since yesterday. IMPRESSION AND PLAN: Chronic obstructive lung disease, hypertension, Alzheimer type dementia, degene rative joint disease, activities of daily living dysfunction. From pulmonary point of view, doing we ll. May discontinue his prednisone. Continue Singulair, continue p.r.n. antihistamine, albuterol HF A 2 puffs q. 4 hours p.r.n. for shortness of breath. Gastric and deep venous thrombosis prophylaxis. Thank you, and will follow with you. Karishma Cavazos MD cc: 336 TT: 10/20/2016 12:54:03 Confirmation # [id number] Dictation # [id number] mn
--- NOTE | 2016-10-20 15:23 | PN ---
DATE: 10/20/2016 The patient is without complaints. PHYSICAL EXAMINATION: VITAL SIGNS: Blood pressure 119/68, the heart rate is in the 70s. NECK: Negative JVD. LUNGS: No rales noted. HEART: Reveals S1, S2. EXTREMITIES: Without edema. LABORATORIES: Not drawn. IMPRESSION: 1. Chronic obstructive pulmonary disease which is now stable. 2. No evidence for congestive heart failure. 3. Diabetes mellitus. 4. Weakness that has improved. Given these findings, the patient is doing well cardiovascular-[place]. Continue physical therapy. Darius Wheat MD cc: [id number] TT: 10/20/2016 15:22:27 Confirmation # [id number] Dictation # [id number] mn
--- NOTE | 2016-10-20 15:35 | PN ---
DATE: 10/20/2016 SUBJECTIVE: The patient is lying in bed in no acute distress. He denies chest pain or shortness of breath. OBJECTIVE: VITAL SIGNS: Blood pressure 119/68, temperature 98.4, pulse 76, respiratory rate 18. LUNGS: Clear. HEART: Regular rate and rhythm. ABDOMEN: Soft, nontender, bowel sounds are normoactive. EXTREMITIES: Without cyanosis, clubbing, or edema. NEUROLOGIC: The patient is awake and oriented x 3 without focal sensory or motor deficits. SKIN: Warm and dry. IMPRESSION: 1. Exacerbation of chronic obstructive pulmonary disease with bronchitis. 2. Hypertension, hypertensive cardiovascular disease and mild congestive heart failure. 3. Degenerative joint disease. 4. Mild Alzheimer disease. 5. Abdominal aortic aneurysm, status post stent graft placement. PLAN: Continue pulmonary followup with Dr. Cavazos, cardiology followup with Dr. Wheat. Continue phys ical therapy and social work for discharge planning. Eugenio Aguayo JD, MD cc: 353 TT: 10/20/2016 15:34:53 Confirmation # [id number] Dictation # [id number] sn
[2016-10-21] MEDS: Albuterol-Ipratrop 3 mg / 0.5 (3 ml) UD IH SCH ×4 (00:32→15:45)
[2016-10-21 05:57] VITALS: TEMP 98; O2SAT 98
[2016-10-21] MEDS: Pantoprazole 20 mg EC Tab PO SCH (05:57)
[2016-10-21] MEDS: Budesonide 0.5 mg/2 ml Inhal Susp UD IH SCH (07:22)
[2016-10-21] MEDS: Arformoterol 15 mcg/2 ml Inh Sol IH SCH (07:22)
[2016-10-21] MEDS: MIRABEGRON 50 MG PO SCH (10:18)
[2016-10-21 11:10] VITALS: BP 111/69; PULSE 79; RESP 18
--- NOTE | 2016-10-21 15:42 | DS ---
HOSPITAL COURSE: The patient is an 86-year-old male admitted to the transitional care unit for [facility] rehab status post hospitalization for exacerbation of chronic obstructive pulmonary disease with bronchitis. The patient has had an uneventful course in the transitional care unit, has been seen in consultation by Dr. Cavazos for pulmonary and cardiology from Dr. Wheat and is medically stable for di scharge to home. He denies any chest pain or shortness of breath at present. OBJECTIVE: VITAL SIGNS: Blood pressure 111/69, temperature 98, pulse 79, respiratory rate 18. LUNGS: Clear. HEART: Regular rate and rhythm. ABDOMEN: Soft, nontender, bowel sounds are normoactive. EXTREMITIES: Without cyanosis, clubbing, or edema. NEUROLOGIC: The patient is awake and oriented x 3 without focal, sensory or motor deficits. SKIN: Warm and dry. IMPRESSION: 1. Exacerbation of chronic obstructive pulmonary disease with bronchitis. 2. Hypertension, hypertensive cardiovascular disease and mild congestive heart failure. 3. Degenerative joint disease. 4. Mild Alzheimer disease. 5. Abdominal aortic aneurysm, status post stent graft placement. PLAN: The patient will be discharged to home on the following medications: Advair Diskus 250/50 one inhalation twice daily, Exelon 9.5 mg per day patch, Protonix 40 mg daily, mirabegron 50 mg daily, a nd Mirapex 0.125 mg daily. The patient will be maintained on a heart healthy diet. Activity is ad l ibitum. He will be followed in the office within the next 1-2 weeks. Eugenio Aguayo JD, MD cc: 353 TT: 10/21/2016 15:41:46 en
--- NOTE | 2016-10-21 19:56 | PN ---
DATE: 10/21/2016 REFERRING PHYSICIAN: Dr. Aguayo. SUBJECTIVELY: He is lying in the bed, comfortable. Night was unremarkable. Feels better. Doing we ll in therapy. No nausea, no vomiting, diarrhea, leg pain, or leg swelling. OBJECTIVELY: No acute distress. Temp is 98, heart rate is 79, respiratory rate is 18, blood pressure 111/69, pulse ox 98% on room air . HENT: Moist mucous membranes. Crowded airway. Mallampati score is 4. NECK: Supple. No JVD. LUNGS: Has a fair airflow with few rhonchi. HEART: S1, S2. ABDOMEN: Soft, nontender. No organomegaly. EXTREMITIES: There is no edema. NEUROLOGICALLY: Awake, alert. Follows simple commands. MEDICATIONS: He is on Brovana inhaled twice a day, DuoNeb q. 4 hours p.r.n., Exelon 9.5 mg daily, Mi rapex 0.125 mg at bedtime, Protonix 40 mg daily, Pulmicort inhaled twice a day, Singulair 10 mg daily , Tylenol p.r.n. basis. LABORATORY DATA: Reviewed. No new lab is available since yesterday. IMPRESSION AND PLAN: Chronic obstructive lung disease, hypertension, Alzheimer-type dementia, degene rative joint disease, activities of daily living dysfunction, has snoring at nighttime, daytime sleep y and tired. Will schedule outpatient attended sleep study, PFT. Pulmonary status stable. Karishma Cavazos MD cc: 336 TT: 10/21/2016 19:55:56 Confirmation # [id number] Dictation # [id number] kristine
== END 2016-10-21 16:01 | disposition home or self-care (01) | DRG 192 ==
LOC: TRCU 18:45
PROVIDERS: ADMIT Internal Medicine; ATTEND Internal Medicine
PROC: 3E0F7GC Introduction of Other Therapeutic Substance into Respiratory Tract, Via Natural or Artificial Opening (ICD-10-PCS; 2016-10-13)
PROC: F07Z9FZ Gait Training/Functional Ambulation Treatment using Assistive, Adaptive, Supportive or Protective Equipment (ICD-10-PCS; principal; 2016-10-14)
PROC: F08Z4FZ Home Management Treatment using Assistive, Adaptive, Supportive or Protective Equipment (ICD-10-PCS; 2016-10-14)
DX: J44.1 Chronic obstructive pulmonary disease with (acute) exacerbation (principal); Z79.2 Long term (current) use of antibiotics; R06.83 Snoring; I11.0 Hypertensive heart disease with heart failure; I50.9 Heart failure, unspecified; G30.9 Alzheimer's disease, unspecified; F02.80 Dementia in other diseases classified elsewhere, unspecified severity, without behavioral disturbance, psychotic disturbance, mood disturbance, and anxiety; N32.81 Overactive bladder; F17.210 Nicotine dependence, cigarettes, uncomplicated; E11.9 Type 2 diabetes mellitus without complications; I71.4 Abdominal aortic aneurysm, without rupture; G25.81 Restless legs syndrome; M19.90 Unspecified osteoarthritis, unspecified site